=== PATIENT | female | born 1965 | race Caucasian/White ===

== ENCOUNTER 2019-08-18 19:46 | Emergency (ER) | payer BC ==
[~2019-08-18] VITALS: Ht 162.6 cm; Wt 86.4 kg
[~2019-08-18 19:46] MED LIST: ELIQUIS5 MG PO; ESTRACE1 MG PO
[2019-08-18 20:04] VITALS: Ht 162.6 cm; Wt 86.4 kg
[2019-08-18 20:28] LABS: BASOPHILS 0.1 % (0-2); EOSINOPHILS 1.5 % (0-7); HEMATOCRIT 41.5 % (36.0-48.0); HEMOGLOBIN 13.9 g/dL (12-16); LYMPHOCYTES 42.3 % (15-50); MCH 32.6 pg (26.0-34.0); MCHC 33.5 g/dL (31.0-37.0); MCV 97.2 fL (80.0-100.0); MEAN PLATELET VOLUME 10.3 fL (7.4-10.4); NEUTROPHILS 49.1 % (40-80); RBC 4.27 10x6/uL (4.00-5.40); RDW 12.9 % (11.5-14.5); WBC 6.8 10x3/uL (4.8-10.8)
[2019-08-18 20:29] LABS: PLATELET COUNT 249 10x3/uL (130-400)
[2019-08-18 20:36] LABS: CALC OSMOLALITY 279 mosm/kg (275-300); CALCIUM 9.2 mg/dL (8.5-10.1); CARBON DIOXIDE 28.8 mmol/L (21.0-32.0); CHLORIDE - SERUM 105 mmol/L (98-107); GLUCOSE 92 mg/dL (74-106); POTASSIUM - SERUM 3.9 mmol/L (3.5-5.1); SODIUM 139 mmol/L (136-145); UREA NITROGEN 19 mg/dL (7-18); eGFR NON AFRICAN AMERICAN 61 mL/min (90-120)
[2019-08-18 20:45] LABS: ALBUMIN 4.1 g/dL (3.4-5.0); ALKALINE PHOSPHATASE 86 U/L (30-120); ALT (SGPT) 18 U/L (10-68); AMYLASE - SERUM 76 U/L (25-115); BILIRUBIN NEGATIVE (NEGATIVE); BILIRUBIN - TOTAL 0.55 mg/dL (0.2-1.3); GLUCOSE NEGATIVE (NEGATIVE); KETONE NEGATIVE (NEGATIVE); LIPASE 164 U/L (73-393); NITRITE POSITIVE (NEGATIVE); PROTEIN - SERUM 7.9 g/dL (6.4-8.2); SPECIFIC GRAVITY 1.015 (1.005-1.020); UROBILINOGEN NORMAL (NORMAL)
[2019-08-18 20:46] LABS: BACTERIA MANY /hpf (NEGATIVE); EPITHELIAL CELLS 0-5 /hpf (0-5); RED CELLS - URINE 0-5 /hpf (0-5); TROPONIN-I < 0.017 ng/mL (0.000-0.060)
[2019-08-18] MEDS ORDERED: KEFLEX500 MG PO (21:08)
[2019-08-18 21:58] VITALS: BP 145/72
== END 2019-08-18 21:58 | disposition home or self-care (01) ==
LOC: D.ER 19:46
PROVIDERS: Emergency Medicine
DX: N39.0 Urinary tract infection, site not specified (principal); R10.11 Right upper quadrant pain